=== PATIENT | female | born 1955 | race Caucasian/White ===

== ENCOUNTER 2016-11-03 06:28 | Day surgery (SDC) | payer OTHER ==
[~2016-11-03] VITALS: Ht 154.9 cm; Wt 60.5 kg
[2016-11-03 07:23] VITALS: Ht 154.9 cm; Wt 60.5 kg
[2016-11-03] MEDS ORDERED: IBUP-1542 PO (07:36)
[2016-11-03] MEDS ORDERED: FOLI-49 PO (07:36)
[2016-11-03] MEDS ORDERED: ASPI81TA3 PO (07:36)
[2016-11-03 07:40] VITALS: BP 136/66; PULSE 60; RESP 16
[2016-11-03] MEDS ORDERED: LIDOCAINE 4% SOLUTION 50 ML BTL ONE (07:44)
[2016-11-03] MEDS ORDERED: MIDAZOLAM 1 MG/ML 2 ML INJ ONE ×2 (08:42)
[2016-11-03] MEDS ORDERED: FENTAnyl 50 MCG/ML VIAL ONE (08:43)
--- NOTE | 2016-11-03 10:18 | GILP ---
DATE OF PROCEDURE: 11/03/2016 NAME OF PROCEDURE: Esophagogastroduodenoscopy. PREOPERATIVE DIAGNOSIS: Patient presenting with history of chronic abdominal pain unresponsive to r outine therapy. She was treated with antibiotics. She has been on aspirin, rule out drug-induced u lcer disease, rule out peptic ulcer disease, gastritis. POSTOPERATIVE DIAGNOSES: 1. Mild to moderate degree of gastritis in a diffuse manner noted. 2. 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 This was cauterized by bipolar cauterization probe. 3. Duodenum appeared normal. DESCRIPTION OF PROCEDURE: After the informed written consent was obtained, the patient was asked to lie on the left lateral side. Intravenous anesthesia was given which included 3 mg Versed and 50 m cg of fentanyl. When the patient became somnolent, the Olympus video upper endoscope was introduced into the oropharynx, then into the esophagus. Esophagus appeared normal with no mucosal abnormalit y. Endoscope at this time was advanced to the stomach. Entire stomach showed evidence of diffuse a reas of erythema with friability. There were 2 areas of arteriovenous malformations noted, one in t he antrum, one . One in the antrum and one the fundus. Both of these lesions were treated wit h bipolar cauterization probe until the mucosa turned white. The duodenum showed normal mucosa up t o the end of the third portion. Endoscope at this time was withdrawn. On the way out, no additiona l abnormalities detected, and the procedure was conducted. PLAN. Recommend Omeprazole 40 mg a day for 8 weeks. Dictated By: TRISHA TURPIN/MAYURI Conf#: [id number] DID#: [id number] CC: [facility];*End*
--- NOTE | 2016-11-03 10:21 | GILP ---
DATE OF PROCEDURE: PROCEDURE: Colonoscopy. PREOPERATIVE DIAGNOSIS: Screening colonoscopy to rule out colon polyps. POSTOPERATIVE DIAGNOSES: 1. Two polyps noted at 15 cm from the anus close to each other, 3 mm in diameter. They were remove d with a cold biopsy forceps. 2. Moderate degree of internal and external hemorrhoids. DESCRIPTION OF PROCEDURE: After informed written consent was obtained, the patient was asked to lie on the left lateral side, 3 mg Versed and 75 mcg of fentanyl was given as intravenous anesthesia. When the patient became somnolent, the Olympus video colonoscope was introduced into the rectum and scope was advanced all the way to the cecum. Entire colon appeared perfectly normal with no mucosal abnormality. On the way out, examination was carried out. Two small polyps measuring 3 mm in diam eter located at 15 cm from the anus, they were close to each other and both of them were removed wit h help of cold biopsy forceps. Retroflexion was performed. Moderate degree of internal hemorrhoids were noted. When the scope was withdrawn, moderate degree of external hemorrhoids were noted and the procedure was terminated. PLAN: 1. Recommend wait for the pathology report. 2. Repeat colonoscopy in 5 years. Dictated By: TRISHA TURPIN/MAYURI Conf#: [id number] DID#: [id number] CC: [facility];*End*
== END 2016-11-03 18:46 | disposition home or self-care (01) ==
LOC: GIL 06:28
PROVIDERS: ATTEND Internal Medicine Gastroenterology
DX: K29.50 Unspecified chronic gastritis without bleeding (principal); K62.1 Rectal polyp; K64.8 Other hemorrhoids; K64.4 Residual hemorrhoidal skin tags
CPT/HCPCS: 43239; 45380; 88305; 88312; J2250; J3010; Z7610

== ENCOUNTER 2017-12-04 12:25 | Inpatient (IN) | END 2017-12-08 15:15 | disposition home or self-care (01) | DRG 552 ==

== ENCOUNTER 2017-12-12 15:33 | Outpatient (CLI) | END 2017-12-12 16:27 | disposition home or self-care (01) ==